=== PATIENT | female | born 1980 | race Caucasian/White ===

== ENCOUNTER 2018-06-15 11:37 | Emergency (ER) | payer OTHER ==
[~2018-06-15] VITALS: Ht 177.8 cm; Wt 82.1 kg
[2018-06-15 11:37] VITALS: BP 110/70
[2018-06-15] MEDS ORDERED: ALPRAZOLAM 0.5 MG TABLET PO ONE (12:30)
== END 2018-06-15 12:54 | disposition home or self-care (01) ==
LOC: ER 11:40
DX: F41.1 Generalized anxiety disorder (principal); G47.00 Insomnia, unspecified; F43.9 Reaction to severe stress, unspecified; Z88.2 Allergy status to sulfonamides
CPT/HCPCS: 99284; A4606